=== PATIENT | female | born 1935 | race African-American/Black ===

== ENCOUNTER 2017-11-18 19:50 | Emergency (ER) | payer OTHER ==
[2017-11-18 19:58] VITALS: BP 114/56; BMI 32.9
--- NOTE | 2017-11-18 20:52 | DR.GENAD ---
HPI - PCP Primary Care Physician: JENNIFER ZAVALA - HPI Comment HPI Comment: WORSE TONIGHT. FEVER PRESENT. NO ABDOMINAL PAIN OR BACK PAIN. - Complaint/Symptoms Chief Complaint Doctors Comments: FELL. HIP PAIN TIMES 2 DAYS. RASH UNDER LOWER ABDOMEN SKIN FOLD NOTED TODAY. Chief Complaint:: "SHE FELL ON FRIDAY AND SHE IS NOT WALKING RIGHT. SHE HAS A RASH UNDER THE FOLDS ON HER STOMACH-NOTICED TODAY." - Nurses notes reviewed Nurses Notes Review: Yes - Source History Provided: Family Member - Mode of Arrival Mode of Arrival: Wheelchair - Timing Onset of Chief Complaint: 11/16/17 Came on: Suddenly - Duration Duration: Constant Duration: Days - Severity Severity: Moderate PMH - PMH Past Medical History: Yes Past Medical History: Arthritis, Dementia, Diabetes, Hypertension Past Surgical History: No - Family History History of Family Medical Conditions: Yes Family Medical History: Diabetes Mellitus, Hypertension - Social History Does patient currently use any type of tobacco product: No Have you used tobacco products in the last 12 months: No Type of Tobacco Use: None Does any household member use tobacco: No Alcohol Use: None Do you use any recreational Drugs:: No Lives With: Family Lives Where: Home - infectious screening Have you traveled outside the country in the last 6 months?: No Isolation: Standard ROS - Review of Systems Constitutional: Fever, Weakness, Fatigue ENTM: negative: Ear Pain, Nose Discharge, Nose Congestion, Throat Pain Respiratoy: Non-Productive Cough, Short of Breath, Wheezing. negative: Hemoptysis Cardiovascular: No Symptoms Reported. negative: Chest Pain, Edema, Cyanosis Gastrointestinal/Abdominal: negative: Abdominal Pain, Diarrhea, Nausea Genitourinary: negative: Dysuria, Hematuria Neurological: Weakness Musculoskeletal: Back Pain, Muscle Pain Integumentary: Rash, Itching Hematologic/Lymphatic: Anemia Endocrine: No Symptoms Reported All Other Systems: Reviewed and Negative PE - Vital Signs Vitals: Temperature 100.6 F Pulse Rate 105 Respiratory Rate 18 Blood Pressure 114/56 O2 Sat by Pulse Oximetry 97 - General Limitations: Other (DEMENTIA.) General Appearance: Alert - Head Head Exam: Normal Inspection - Eyes Eye exam: Normal Appearance - ENT ENT Exam: Normal External Ear Exam External Ear Exam: Normal External Inspection TM/Canal Exam: Bilateral Normal Nose Exam: Normal Nose Exam Mouth Exam: Normal Inspection Throat Exam: Tonsillar Erythema - Neck Neck Exam: Trachea Midline - Chest Chest Inspection: Symmetric Chest Wall Rise - Respiratory Respiratory Exam: Normal Lung Sounds Bilat Respiratory Exam: Bilateral Rhonchi, Lower Rhonchi - Cardiovascular Cardiovascular Exam: Regular Rate, Normal Rhythm, Normal Heart Sounds - Abdominal Exam Abdominal Exam: Normal Bowel Sounds, Soft. negative: Tenderness - Extremities Extremities Exam: Tenderness (RT HIP. TRANG WITH PAIN.) - Back Back Exam: Tenderness (LOWER BACK.) - Neurologic Neurological Exam: Alert - Psychiatric Psychiatric Exam: Normal Affect, Normal Mood - Skin Skin Exam: Rash (LOWER ABD, RED AND WEEPING. SURROUNDING REDNESS.), Erythema MDM - Additional Information Additional Information Obtained From: Family - Differential Diagnosis Differential Diagnosis: LOWER ABDOMEN CELLULITIS, BILATERAL HIP PAIN Course - Treatment Treatment: SEE ORDERS. IM PAIN MED IN ED. - Education/Counseling Education/Counseling: Patient, Family, Education Educated On: Treatment, Diagnosis, Needs for Follow Up ROR - XRAY XRAY Interpreted by: Radiologist XRAY Findings: REPORT DISCUSS WITH PATIENT. - Diagnosis Discharge Problem: Rash, Hip pain, Hip sprain Cellulitis Qualifiers: Site of cellulitis: trunk Site of cellulitis of trunk: abdominal wall Qualified Code(s): L03.311 - Cellulitis of abdominal wall - Discharge Plan Disposition: HOME, SELF-CARE Condition: Stable Prescriptions: Ibuprofen [MOTRIN TAB 400 MG *] 400 mg PO BID PRN #14 tab PRN Reason: Pain/Inflammation Nystat:Hydrocort:Desitin 1:1:1 [Butt Cream (Compound)] 1 applic EX BID PRN #1 jar PRN Reason: Diaper Rash Sulfamethoxazole-Trimethoprim [BACTRIM DS TAB 800/160 MG *] 1 tab PO BID #20 tab - Follow ups/Referrals Follow ups/Referrals: [facility],None [Primary Care Provider] - 3 days - Instructions Instructions: Cellulitis, Adult, [id number], Rash, [id number], Joint Pain, [id number] Additional Instructions: RETURN TO ED IF WORSE.
--- NOTE | 2017-11-18 21:50 | RAD ---
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 No acute fracture or dislocation. The soft tissues are unremarkable. IMPRESSION: 1. No acute osseous abnormality. Reported By:
[2017-11-18] MEDS ORDERED: TORADOL 60 MG VIAL IM ONE (22:06)
[2017-11-18] MEDS ORDERED: DECADRON INJ IM ONE (22:06)
[2017-11-18] MEDS ORDERED: BACTRIM DS TAB PO ONE ×2 (22:13→22:17)
[2017-11-18] MEDS ORDERED: DECADRON INJ ONE (22:17)
[2017-11-18] MEDS ORDERED: TORADOL 60 MG VIAL ONE (22:17)
== END 2017-11-18 22:33 | disposition home or self-care (01) ==
LOC: ER 20:05
DX: M25.551 Pain in right hip (principal); S83.91XA Sprain of unspecified site of right knee, initial encounter; L03.311 Cellulitis of abdominal wall; R21 Rash and other nonspecific skin eruption; W19.XXXA Unspecified fall, initial encounter; Y92.9 Unspecified place or not applicable
CPT/HCPCS: 73521; 96372; 99282; J1100; J1885